=== PATIENT | male | born 1940 | race Caucasian/White ===

== ENCOUNTER 2023-04-03 17:11 | Emergency (ER) | payer MEDICARE ==
[~2023-04-03] VITALS: Ht 193 cm; Wt 135.6 kg
[2023-04-03 18:23] LABS: MEAN CORPUSCULAR HEMOGLOBIN 33.9 pg (27.0-33.0); MEAN CORPUSCULAR HGB CONC 35.3 g/dL (32.0-36.0); RED BLOOD CELL COUNT(AUTO) 4.48 MIL/uL (4.50-6.20); RED CELL DISTRIBUTION WIDTH 13.2 % (11.0-15.5); WHITE BLOOD COUNT (AUTO) 6.9 K/uL (4.8-10.8)
[2023-04-03 18:39] LABS: POTASSIUM 3.7 mmol/L (3.5-5.1)
[2023-04-03 18:47] LABS: ALBUMIN 3.7 g/dL (3.5-5.0); BILIRUBIN,TOTAL 0.6 mg/dL (0.2-1.0)
[2023-04-03] MEDS: LOSARTAN 25 MG TABLET PO ONE (19:53)
[2023-04-03] MEDS: HYDRALAZINE 20MG/ML VIAL IV ONE (22:16)
[2023-04-03 22:31] VITALS: BP 168/78; PULSE 80; RESP 19; O2SAT 100
[2023-04-03] MEDS ORDERED: LOSA50TA64 PO (22:37)
== END 2023-04-03 22:52 | disposition home or self-care (01) ==
LOC: EDH 17:11
DX: I10 Essential (primary) hypertension (principal)
CPT/HCPCS: 99285; 96374; 71045; 84484 ×2; 80053; 83880; 85027; 85378; 36415; 93005; J0360